=== PATIENT | female | born 1970 | race American Indian/Alaskan Native ===

== ENCOUNTER 2017-09-04 23:48 | Emergency (ER) | payer MEDICAID ==
[~2017-09-04] VITALS: Ht 167.6 cm; Wt 61.4 kg
[~2017-09-04 23:48] MED LIST: ALBU18HF2 INH; ATI1T PO; CHLO25CA10 PO; FLUO40CA10 PO; FOLI0.4T2 PO; FOLI1TAB16 PO; GUAI600T31; LIT300C PO; LORA1TAB PO; MULT-1179 PO; ONDA4TAB9 PO; ONDA8TAB9 PO; QUET-1 PO; RANI150T8 PO; THI100T PO; TRAZ-146 PO
[2017-09-05] MEDS ORDERED: chlordiazePOXIDE 25mg capsule PO ONE (00:05)
[2017-09-05 01:38] LABS: BASOPHILS # (AUTO) 0.2 X10'3 (0-0.2); BASOPHILS % (AUTO) 1.8 % (0-1); EOSINOPHILS # (AUTO) 0.2 X10'3 (0-0.9); HEMATOCRIT 36.4 % (35.0-45.0); HEMOGLOBIN 12.3 g/dl (12.0-16.0); LYMPHOCYTES # (AUTO) 3.1 X10'3 (1.1-4.8); LYMPHOCYTES % (AUTO) 34.5 % (21-51); MEAN CORPUSCULAR HEMOGLOBIN 32.3 PG (27.0-31.0); MEAN CORPUSCULAR HGB CONC 33.7 % (33.0-36.5); MEAN CORPUSCULAR VOLUME 95.7 FL (78-98); MONOCYTES # (AUTO) 0.7 X10'3 (0-0.9); MONOCYTES % (AUTO) 8.1 % (2-12); NEUTROPHILS # (AUTO) 4.8 X10'3 (1.8-7.7); NEUTROPHILS % (AUTO) 53.6 % (42-75); PLATELET COUNT 215 X10'3 (140-440); RED CELL DISTRIBUTION WIDTH 14.9 % (11.5-14.5)
[2017-09-05 01:51] LABS: ALANINE AMINOTRANSFERASE 22 U/L (12-78); ALBUMIN 3.3 G/DL (3.4-5.0); ALBUMIN/GLOBULIN RATIO 0.9 (1.1-1.5); ALKALINE PHOSPHATASE 65 IU/L (46-116); ANION GAP 9 (8-16); ASPARTATE AMINO TRANSFERASE 18 U/L (10-37); BILIRUBIN,TOTAL 0.1 MG/DL (0.1-1.0); BLOOD UREA NITROGEN 13 MG/DL (7-18); BUN/CREATININE RATIO 22.8 (6.6-38.0); CALCIUM 8.6 MG/DL (8.5-10.1); CHLORIDE 109 MMOL/L (99-107); CREATININE 0.57 MG/DL (0.40-0.90); GLUCOSE 83 MG/DL (70-104); SODIUM 144 MMOL/L (135-145); TOTAL PROTEIN 6.8 G/DL (6.4-8.2); eGFR > 90 ML/MIN
[2017-09-05 01:53] LABS: URINE HCG NEGATIVE (NEG)
[2017-09-05 02:00] LABS: ETHANOL 0.246 GM/DL (0.0-0.010)
[2017-09-05 02:36] LABS: URINE AMPHETAMINE SCREEN NEGATIVE (Neg); URINE BARBITUATE SCREEN NEGATIVE (Neg); URINE BENZODIAZEPINES SCREEN POSITIVE (Neg); URINE CANNABINOID SCREEN NEGATIVE (Neg); URINE COCAINE SCREEN NEGATIVE (Neg); URINE METHADONE SCREEN NEGATIVE (Neg); URINE OPIATE SCREEN POSITIVE (Neg); URINE PHENCYCLIDINE SCREEN NEGATIVE (Neg)
[2017-09-05] MEDS ORDERED: LIT300C PO (07:11)
[2017-09-05] MEDS: chlordiazePOXIDE 25mg capsule PO PRN ×3 (10:21→20:26)
[2017-09-05] MEDS ORDERED: lithium carbonate 150mg capsule PO SCH ×2 (17:00→20:00)
[2017-09-06] MEDS: chlordiazePOXIDE 25mg capsule PO PRN (05:51)
[2017-09-06] MEDS ORDERED: chlordiazePOXIDE 25mg capsule PO PRN (06:40)
[2017-09-06 09:26] VITALS: BP 135/67
== END 2017-09-06 09:29 | disposition home or self-care (01) ==
LOC: ER 23:48
DX: F32.9 Major depressive disorder, single episode, unspecified (principal); R45.851 Suicidal ideations; F10.20 Alcohol dependence, uncomplicated; G89.29 Other chronic pain; F41.9 Anxiety disorder, unspecified; F12.10 Cannabis abuse, uncomplicated; Z88.8 Allergy status to other drugs, medicaments and biological substances
CPT/HCPCS: 36415; 80053; 80178; 80305; 80320; 81025; 84443; 85025; 99284

== ENCOUNTER 2017-10-08 17:50 | Emergency (ER) | payer MEDICAID ==
[~2017-10-08] VITALS: Ht 170.2 cm; Wt 68.2 kg
[~2017-10-08 17:50] MED LIST changes: -FOLI0.4T2 PO; -LORA1TAB PO; -ONDA4TAB9 PO
[2017-10-08] MEDS ORDERED: normal saline 1000ML IV soln IVB ONE (17:55)
[2017-10-08] MEDS ORDERED: LORazepam 2 mg/ml vial IV ONE ×2 (17:55→18:25)
[2017-10-08 19:01] LABS: BASOPHILS % (AUTO) 0.5 % (0-1); EOSINOPHILS # (AUTO) 0.1 X10'3 (0-0.9); EOSINOPHILS % (AUTO) 1.3 % (0-6); HEMATOCRIT 32.7 % (35.0-45.0); HEMOGLOBIN 11.1 g/dl (12.0-16.0); LYMPHOCYTES # (AUTO) 2.8 X10'3 (1.1-4.8); LYMPHOCYTES % (AUTO) 34.1 % (21-51); MEAN CORPUSCULAR HEMOGLOBIN 32.4 PG (27.0-31.0); MEAN CORPUSCULAR HGB CONC 33.8 % (33.0-36.5); MEAN CORPUSCULAR VOLUME 95.9 FL (78-98); MEAN PLATELET VOLUME 8.6 FL (7.4-10.4); MONOCYTES # (AUTO) 0.4 X10'3 (0-0.9); MONOCYTES % (AUTO) 5.1 % (2-12); NEUTROPHILS # (AUTO) 4.8 X10'3 (1.8-7.7); PLATELET COUNT 199 X10'3 (140-440); RED BLOOD COUNT 3.41 X10'6 (4.20-5.60); RED CELL DISTRIBUTION WIDTH 14.1 % (11.5-14.5); WHITE BLOOD COUNT 8.2 X10'3 (4.5-11.0)
[2017-10-08 19:24] LABS: ALANINE AMINOTRANSFERASE 19 U/L (12-78); ALBUMIN 3.1 G/DL (3.4-5.0); ALKALINE PHOSPHATASE 49 IU/L (46-116); ANION GAP 7 (8-16); ASPARTATE AMINO TRANSFERASE 12 U/L (10-37); BILIRUBIN,TOTAL 0.2 MG/DL (0.1-1.0); BLOOD UREA NITROGEN 13 MG/DL (7-18); BUN/CREATININE RATIO 16.3 (6.6-38.0); CALCIUM 7.4 MG/DL (8.5-10.1); CHLORIDE 118 MMOL/L (99-107); ETHANOL 0.099 GM/DL (0.0-0.010); GLUCOSE 98 MG/DL (70-104); POTASSIUM 4.2 MMOL/L (3.5-5.1); SODIUM 149 MMOL/L (135-145); TOTAL CARBON DIOXIDE 24.2 MMOL/L (24-32); TOTAL PROTEIN 6.3 G/DL (6.4-8.2); eGFR 77 ML/MIN
[2017-10-08 19:29] LABS: ACETAMINOPHEN < 2.0 UG/ML (10-30)
[2017-10-08 19:55] LABS: OSMOLALITY 357 MOSM/K (280-300)
[2017-10-08 20:00] LABS: CLARITY,URINE CLEAR (Clear); COLOR,URINE STRAW (Yellow); GLUCOSE, URINE NEGATIVE (Neg); KETONES,URINE NEGATIVE (Neg); LEUKOCYTE ESTERASE ,URINE NEGATIVE (Neg); NITRITES, URINE NEGATIVE (Neg); OCCULT BLOOD,URINE TRACE-INTACT (Neg); PROTEIN,URINE NEGATIVE (Neg); UA COLLECTION TYPE STRAIGHT CATH; UROBILINOGEN,URINE 0.2 E.U/dL (0.2-1.0)
[2017-10-08 20:04] LABS: URINE HCG NEGATIVE (NEG)
[2017-10-08 20:12] LABS: SQUAMOUS EPITHELIAL CELL,UR FEW /LPF (FEW); URINE AMPHETAMINE SCREEN NEGATIVE (Neg); URINE BARBITUATE SCREEN NEGATIVE (Neg); URINE BENZODIAZEPINES SCREEN NEGATIVE (Neg); URINE CANNABINOID SCREEN NEGATIVE (Neg); URINE COCAINE SCREEN NEGATIVE (Neg); URINE METHADONE SCREEN NEGATIVE (Neg); URINE OPIATE SCREEN NEGATIVE (Neg); URINE PHENCYCLIDINE SCREEN NEGATIVE (Neg)
[2017-10-08 20:13] LABS: BACTERIA,URINE FEW /HPF (Neg); RBC,URINE 0-2 /HPF (0-2); WBC,URINE 0-4 /HPF (0-4)
[2017-10-08] MEDS ORDERED: thiamine 100mg/ml 2ml inj. IV ONE (23:30)
[2017-10-08] MEDS ORDERED: haloperidol lactate 5mg/ml inj IM PRN (23:30)
[2017-10-08] MEDS ORDERED: haloperidol 5mg tablet PO PRN (23:30)
[2017-10-08] MEDS ORDERED: LORazepam 2 mg/ml vial IV PRN (23:30)
[2017-10-08] MEDS ORDERED: dextrose 50%-water 50ml dispensing syringe IV PRN (23:30)
[2017-10-09] MEDS: thiamine 100mg tablet PO SCH ×3 (00:15→09:32)
[2017-10-09] MEDS: LORazepam 1 MG tablet PO PRN ×4 (02:22→10:24)
[2017-10-09] MEDS ORDERED: FLUO40CA10 PO (02:39)
[2017-10-09] MEDS ORDERED: MULT-625 PO (02:39)
[2017-10-09] MEDS ORDERED: LIT300C PO (02:39)
[2017-10-09 05:53] VITALS: BP 99/64
[2017-10-09] MEDS ORDERED: ibuprofen 200mg tablet PO ONE (07:30)
[2017-10-09] MEDS: multivitamins, therapeutics tablet PO SCH ×2 (08:00→09:32)
[2017-10-09] MEDS: lithium carbonate 300mg SR tablet (LithoBID) PO SCH ×2 (08:00→09:32)
[2017-10-09] MEDS: FLUoxetine 20mg capsule PO SCH ×2 (08:00→09:32)
[2017-10-09 10:00] LABS: ALBUMIN 3.7 G/DL (3.4-5.0); ANION GAP 8 (8-16); BLOOD UREA NITROGEN 10 MG/DL (7-18); BUN/CREATININE RATIO 6.3 (6.6-38.0); CALCIUM 8.7 MG/DL (8.5-10.1); CHLORIDE 111 MMOL/L (99-107); ETHANOL < 0.010 GM/DL (0.0-0.010); GLUCOSE 96 MG/DL (70-104); POTASSIUM 4.1 MMOL/L (3.5-5.1); SODIUM 144 MMOL/L (135-145); TOTAL CARBON DIOXIDE 25.3 MMOL/L (24-32); eGFR 35 ML/MIN
[2017-10-09 11:13] LABS: OSMOLALITY 314 MOSM/K (280-300)
[2017-10-09] MEDS ORDERED: acetaminophen 325mg tablet PO ONE (12:15)
[2017-10-09] MEDS ORDERED: FOLI1TAB16 PO (12:53)
[2017-10-09] MEDS ORDERED: THI100T PO (12:53)
== END 2017-10-09 13:24 | disposition home or self-care (01) ==
LOC: ER 17:50
DX: R45.851 Suicidal ideations (principal); F10.20 Alcohol dependence, uncomplicated; F41.9 Anxiety disorder, unspecified; G89.29 Other chronic pain; M54.9 Dorsalgia, unspecified; F32.9 Major depressive disorder, single episode, unspecified; F12.10 Cannabis abuse, uncomplicated; Z88.8 Allergy status to other drugs, medicaments and biological substances
CPT/HCPCS: 36415; 80048; 80053; 80178; 80305; 80320; 80329; 81001; 81025; 82948; 83930; 84443; 85025; 96361; 96374; 99285; A4353; J2060; J3411; J7030

== ENCOUNTER 2017-12-23 01:01 | Emergency (ER) | payer MEDICAID ==
[~2017-12-23] VITALS: Ht 170.2 cm; Wt 65.0 kg
[~2017-12-23 01:01] MED LIST changes: -ALBU18HF2 INH; -ATI1T PO; -CHLO25CA10 PO; -GUAI600T31; -MULT-1179 PO; +MULT-625 PO; -ONDA8TAB9 PO; -QUET-1 PO; -RANI150T8 PO; -THI100T PO; -TRAZ-146 PO
[2017-12-23] MEDS ORDERED: morphine 4 MG/ML inj SYRINge IV ONE (01:30)
[2017-12-23] MEDS ORDERED: ondansetron/PF 4mg/2ml inj IV ONE (01:30)
[2017-12-23] MEDS ORDERED: IBUP-1984 PO (02:16)
[2017-12-23] MEDS ORDERED: HYDR-3965 PO (02:16)
[2017-12-23 02:29] VITALS: BP 98/64
== END 2017-12-23 02:36 | disposition home or self-care (01) ==
LOC: ER 01:02
DX: S22.32XA Fracture of one rib, left side, initial encounter for closed fracture (principal); G89.29 Other chronic pain; F12.10 Cannabis abuse, uncomplicated; Z88.8 Allergy status to other drugs, medicaments and biological substances; Z79.899 Other long term (current) drug therapy; W19.XXXA Unspecified fall, initial encounter; Y93.E1 Activity, personal bathing and showering; Y92.89 Other specified places as the place of occurrence of the external cause; Y99.8 Other external cause status
CPT/HCPCS: 71101; 96374; 96375; 99284; J2270; J2405

== ENCOUNTER 2018-01-28 03:03 | Emergency (ER) | payer MEDICAID ==
[~2018-01-28] VITALS: Ht 170.2 cm; Wt 68.2 kg
[2018-01-28] MEDS ORDERED: ketorolac trometh. 30mg/ml inj. IM ONE (03:55)
[2018-01-28 04:13] VITALS: BP 100/71
== END 2018-01-28 04:48 | disposition home or self-care (01) ==
LOC: ER 03:03
DX: R07.81 Pleurodynia (principal); G89.29 Other chronic pain; M54.9 Dorsalgia, unspecified; F12.10 Cannabis abuse, uncomplicated; Z88.8 Allergy status to other drugs, medicaments and biological substances; Z79.899 Other long term (current) drug therapy; Z98.890 Other specified postprocedural states
CPT/HCPCS: 71045; 96372; 99284; J1885

== ENCOUNTER 2018-07-21 06:43 | Emergency (ER) | payer MEDICAID ==
[~2018-07-21] VITALS: Ht 167.6 cm; Wt 65.0 kg
[2018-07-21 06:50] VITALS: BP 113/59
[2018-07-21] MEDS ORDERED: ketorolac trometh inj. 60 MG/2 ML VIAL IM ONE (07:15)
== END 2018-07-21 08:09 | disposition home or self-care (01) ==
LOC: ER 06:44
DX: S63.501A Unspecified sprain of right wrist, initial encounter (principal); S53.401A Unspecified sprain of right elbow, initial encounter; M75.32 Calcific tendinitis of left shoulder; G89.29 Other chronic pain; F12.90 Cannabis use, unspecified, uncomplicated; Z88.8 Allergy status to other drugs, medicaments and biological substances; Z79.899 Other long term (current) drug therapy; Z98.890 Other specified postprocedural states; X58.XXXA Exposure to other specified factors, initial encounter; Y93.89 Activity, other specified; Y92.89 Other specified places as the place of occurrence of the external cause; Y99.8 Other external cause status
CPT/HCPCS: 73030; 73080; 73110; 96372; 99284; J1885

== ENCOUNTER 2019-11-05 09:53 | Emergency (ER) | payer MEDICAID ==
[~2019-11-05] VITALS: Ht 167.6 cm; Wt 64.1 kg
[2019-11-05 11:56] LABS: BASOPHILS % (AUTO) 0.4 % (0-1); EOSINOPHILS # (AUTO) 0.2 X10'3 (0-0.9); EOSINOPHILS % (AUTO) 2.3 % (0-6); HEMATOCRIT 39.3 % (35.0-45.0); HEMOGLOBIN 13.4 g/dl (12.0-16.0); LYMPHOCYTES # (AUTO) 2.9 X10'3 (1.1-4.8); LYMPHOCYTES % (AUTO) 34.6 % (21-51); MEAN CORPUSCULAR HEMOGLOBIN 35.2 PG (27.0-31.0); MEAN CORPUSCULAR HGB CONC 34.1 g/dL (33.0-36.5); MEAN CORPUSCULAR VOLUME 103.1 FL (78-98); MEAN PLATELET VOLUME 6.7 FL (7.4-10.4); MONOCYTES # (AUTO) 0.5 X10'3 (0-0.9); MONOCYTES % (AUTO) 6.3 % (2-12); NEUTROPHILS # (AUTO) 4.7 X10'3 (1.8-7.7); NEUTROPHILS % (AUTO) 56.4 % (42-75); PLATELET COUNT 137 X10'3 (140-440); RED BLOOD COUNT 3.81 X10'6 (4.20-5.60); RED CELL DISTRIBUTION WIDTH 15.6 % (11.5-14.5); WHITE BLOOD COUNT 8.3 X10'3 (4.5-11.0)
[2019-11-05 12:09] LABS: PARTIAL THROMBOPLASTIN TIME 30 SECONDS (22-32)
[2019-11-05 12:12] LABS: ALANINE AMINOTRANSFERASE 37 U/L (12-78); ALBUMIN 4.2 G/DL (3.4-5.0); ALKALINE PHOSPHATASE 71 IU/L (46-116); ANION GAP 14 (8-16); ASPARTATE AMINO TRANSFERASE 36 U/L (10-37); BILIRUBIN,TOTAL 0.2 MG/DL (0.1-1.0); BLOOD UREA NITROGEN 13 MG/DL (7-18); BUN/CREATININE RATIO 16.9 (6.6-38.0); C-REACTIVE PROTEIN 0.53 MG/DL (0.0-0.5); CALCIUM 8.5 MG/DL (8.5-10.1); CHLORIDE 104 MMOL/L (99-107); CREATININE 0.77 MG/DL (0.40-0.90); GLUCOSE 79 MG/DL (70-104); POTASSIUM 4.1 MMOL/L (3.5-5.1); SODIUM 142 MMOL/L (135-145); TOTAL CARBON DIOXIDE 24.5 MMOL/L (24-32); TOTAL PROTEIN 8.6 G/DL (6.4-8.2); eGFR 79 ML/MIN
[2019-11-05 12:17] VITALS: BP 102/65
--- NOTE | 2019-11-05 12:49 | NUR ---
MD Galvan aware that the pt wants her normal dose of 15mg Oxycodone. MD Galvan does not want this given yet but wants to see what the pt's ETOH level is first. will order this test per his request.
[2019-11-05] MEDS ORDERED: cephalexin 250mg capsule PO ONE (13:05)
[2019-11-05] MEDS ORDERED: CEPH250T PO (13:05)
--- NOTE | 2019-11-05 13:19 | NUR ---
Asked pt what she is on the bactrim for that she started yesterday. she said she is taking it for the infection on her eyelid. MD aware and states the pt can get the keflex and then go home.
[2019-11-05 13:29] LABS: CLARITY,URINE CLEAR (Clear); COLOR,URINE YELLOW (Yellow); GLUCOSE, URINE NEGATIVE (Neg); KETONES,URINE NEGATIVE (Neg); LEUKOCYTE ESTERASE ,URINE NEGATIVE (Neg); NITRITES, URINE NEGATIVE (Neg); OCCULT BLOOD,URINE SMALL (Neg); PROTEIN,URINE NEGATIVE (Neg); UROBILINOGEN,URINE 0.2 E.U/dL (0.2-1.0)
[2019-11-05 13:35] LABS: UA COLLECTION TYPE CLN CATCH MIDSTREAM
[2019-11-05 13:36] LABS: BACTERIA,URINE NONE SEEN /HPF (Neg); MUCUS STRANDS FEW /LPF (Neg); RBC,URINE 0-2 /HPF (0-2); SQUAMOUS EPITHELIAL CELL,UR FEW /LPF (FEW); WBC,URINE 0-4 /HPF (0-4)
[2019-11-05 13:43] LABS: URINE AMPHETAMINE SCREEN NEGATIVE (Neg); URINE BARBITUATE SCREEN NEGATIVE (Neg); URINE BENZODIAZEPINES SCREEN POSITIVE (Neg); URINE CANNABINOID SCREEN NEGATIVE (Neg); URINE COCAINE SCREEN NEGATIVE (Neg); URINE METHADONE SCREEN NEGATIVE (Neg); URINE OPIATE SCREEN POSITIVE (Neg); URINE PHENCYCLIDINE SCREEN NEGATIVE (Neg)
== END 2019-11-05 13:30 | disposition home or self-care (01) ==
LOC: ER 09:53
DX: R21 Rash and other nonspecific skin eruption (principal); T50.995A Adverse effect of other drugs, medicaments and biological substances, initial encounter; I77.6 Arteritis, unspecified; F10.920 Alcohol use, unspecified with intoxication, uncomplicated; G89.29 Other chronic pain; F12.90 Cannabis use, unspecified, uncomplicated; Z98.890 Other specified postprocedural states; Z88.8 Allergy status to other drugs, medicaments and biological substances; Z79.899 Other long term (current) drug therapy; Y92.9 Unspecified place or not applicable; Y90.9 Presence of alcohol in blood, level not specified
CPT/HCPCS: 36415; 80053; 80305; 80320; 81001; 85025; 85610; 85651; 85730; 86140; 99283